=== PATIENT | female | born 1995 | race Caucasian/White ===

== ENCOUNTER 2016-10-01 18:37 | Emergency (ER) | payer OTHER ==
[2016-10-01] MEDS ORDERED: methylPREDNISolone SOD SUCC 125 MG/2 ML VIAL IVP ONE (19:07)
[2016-10-01] MEDS ORDERED: NS 1,000 ML IV ONE (19:07)
--- NOTE | 2016-10-01 19:42 | EDPHY ---
H & P Stated Complaint: rash starting last night HPI/ROS: CHIEF COMPLAINT: Rash HISTORY OF PRESENT ILLNESS: patient awoke this morning at 3:00 a.m. with diffuse rash. This is a very pruritic rash. It is nonpainful. No fever, headache or neck pain. No neck stiffness. No cough or body aches. No joint pain. She is concerned it is very pruritic, as well as a recent trip late last week out of the country. She notes multiple mosquito bite at that time but no tick bites. She has had no bleeding from any site. No fever prior to this. No sore throat. She took some Benadryl over 12 hours ago with no relief. No new exposures of any kind otherwise. Recently drove back from [place] yesterday.No other associated complaints or modifying factors. REVIEW OF SYSTEMS: Ten systems reviewed and are negative unless otherwise noted in the HPI EXAMINATION General Appearance: Alert, no distress Head: normocephalic, atraumatic Eyes: Pupils equal and round, no conjunctival pallor or injection ENT, Mouth: Mucous membranes moist Neck: Normal inspection, supple, non-tender , no meningismus. Active and passive range of motion all planes without pain. Respiratory: Lungs are clear to auscultation Cardiovascular: Regular rate and rhythm Gastrointestinal: Abdomen is soft and nontender Back: non-tender, no bony abnormalities Neurological: A&O, nonfocal, normal gait Skin: Warm and dry, Extensive plaque-like rash about the entire body and neck. Urticarial in appearance. No petechiae. No purpura. No lesions. Extremities: Nontender, no pedal edema . Range of motion intact in all limbs without pain. No edema of the joints Psychiatric: Mood and affect normal DIFFERENTIAL DIAGNOSES: Including but not limited to contact dermatitis, viral exanthem, acute dermatitis, dermatitis NOS MDM: acute pruritic rash that is diffuse. The patient has been scratching extensively but has no excoriations. She has no headache. There is no neck stiffness or meningismus. She has no petechiae or purpura. Given that she has trouble that will obtain IV access and laboratory studies to rule out any obvious abnormality. We will also administer Solu-Medrol, Benadryl and IV fluid. She is in no acute distress and resting comfortably. 2030 Notified by RN that patient was not feeling well with the Solu-Medrol. She felt kind of jittery and anxious. Her rash actually has significantly improved on my re-evaluation, but she does not like how she feels with medication. We are administering Benadryl and watching her. Her vital signs were well within normal limits and she is in no acute distress. 2154 Negative mono test. Remainder of her labs are well within normal limits. There are some atypical lymphocytes. I discussed the case as noted below patient discharged home in stable condition with significantly improved rash. Trial of steroids beginning tomorrow. She was given information about follow- up with Infectious Disease, and she will consider whether she was seated. She will contact him Monday if she wants to see Them next week. Discharged home stable condition. CONSULTATIONS Infectious Disease Dr. Forrest @ 2109. Discussed the patient's care and the possibility of follow-up in her clinic. She says she is happy to see the patient outpatient next week if needed. She does not necessarily want any further labs at this time. I discussed with her that my inclination is that this is unrelated to the patient's travel, I will give the patient information about the clinic and let her decide if she would like to be seen outpatient. SUPERVISION: This patient was independently evaluated without the aide of supervising physician. - Personal History LMP (Females 10-55): 8-14 Days Ago Current Tetanus/Diphtheria Vaccine: Unsure Current Tetanus Diphtheria and Acellular Pertussis (TDAP): Unsure - Medical/Surgical History Hx Asthma: No Hx Chronic Respiratory Disease: No Hx Diabetes: No Hx Cardiac Disease: No Hx Renal Disease: No Hx Cirrhosis: No Hx Alcoholism: No Hx HIV/AIDS: No Hx Splenectomy or Spleen Trauma: No Other PMH: GERD - Social History Smoking Status: Never smoked Constitutional: Initial Vital Signs Temperature (C) 98.1 F 10/01/16 18:41 Heart Rate 99 10/01/16 18:41 Respiratory Rate 18 10/01/16 18:41 Blood Pressure 123/87 H 10/01/16 18:41 O2 Sat (%) 97 10/01/16 18:41 O2 Delivery Mode Room Air Allergies/Adverse Reactions: No Known Allergies Allergy (Unverified 10/01/16 18:40) Home Medications: Medication Instructions Recorded Control 10/01/16 Famotidine [Pepcid 20 MG (*)] 20 mg PO DAILY #20 tab 10/01/16 Omeprazole 10/01/16 predniSONE 60 mg PO DAILY #15 tab 10/01/16 Medical Decision Making - Data Points Laboratory Results: Laboratory Results 10/01/16 19:40 10/01/16 19:40 10/01/16 19:40 WBC 4.20 10^3/uL (3.80-9.50) RBC 5.15 10^6/uL (4.18-5.33) Hgb 14.4 g/dL (12.6-16.3) Hct 41.5 % (38.0-47.0) MCV 80.6 L fL (81.5-99.8) MCH 28.0 pg (27.9-34.1) MCHC 34.7 g/dL (32.4-36.7) RDW 13.0 % (11.5-15.2) Plt Count 181 10^3/uL (150-400) MPV 10.8 fL (8.7-11.7) Neut % (Auto) Not Reported Lymph % (Auto) Not Reported Mayes % (Auto) Not Reported Eos % (Auto) Not Reported Baso % (Auto) Not Reported Nucleat RBC Rel Count 0.0 % (0.0-0.2) Absolute Neuts (auto) Not Reported Absolute Lymphs (auto) Not Reported Absolute Monos (auto) Not Reported Absolute Eos (auto) Not Reported Absolute Basos (auto) Not Reported Absolute Nucleated RBC 0.00 10^3/uL (0-0.01) Immature Gran % Not Reported Seg Neutrophils % 49 % Band Neutrophils % 4 % Lymphocytes % 37 % Monocytes % 5 % Eosinophils % 5 % Immature Gran # Not Reported Absolute Seg Neuts 2.06 10^/uL (1.70-6.50) Absolute Band Neuts 0.17 10^3/uL (0.00-0.70) Absolute Lymphocytes 1.55 10^3/uL (1.00-3.00) Absolute Monocytes 0.21 L 10^3/uL (0.30-0.80) Absolute Eosinophils 0.21 10^3/uL (0.03-0.40) RBC/WBC/PLT Morphology NORMAL (NORMAL) Atypical Lymphocytes 2+ H Platelet Estimate ADEQUATE (ADEQ) Giant Platelets PRESENT H Smear Review By Pending Sodium 140 mEq/L (134-144) Potassium 3.7 mEq/L (3.5-5.2) Chloride 102 mEq/L (97-110) Carbon Dioxide 25 mEq/l (22-31) Anion Gap 13 mEq/L (8-16) BUN 9 mg/dL (7-23) Creatinine 0.7 mg/dL (0.6-1.0) Estimated GFR > 60 Glucose 77 mg/dL (70-100) Calcium 9.1 mg/dL (8.5-10.4) Total Bilirubin 0.9 mg/dL (0.1-1.4) Conjugated Bilirubin 0.3 mg/dL (0.0-0.5) Unconjugated Bilirubin 0.6 mg/dL (0.0-1.1) AST 22 IU/L (14-46) ALT 28 IU/L (9-52) Alkaline Phosphatase 69 IU/L (38-126) Creatine Kinase 38 IU/L (0-156) Total Protein 6.5 g/dL (6.3-8.2) Albumin 4.2 g/dL (3.5-5.0) Beta HCG, Qual NEGATIVE Monoscreen NEGATIVE (NEGATIVE) Medications Given: Discontinued Medications Diphenhydramine HCl (Benadryl Injection) 25 mg IVP EDNOW ONE Stop: 10/01/16 19:08 Last Admin: 10/01/16 19:44 Dose: 25 mg Diphenhydramine HCl (Benadryl Injection) 25 mg IVP EDNOW ONE Stop: 10/01/16 20:31 Last Admin: 10/01/16 20:31 Dose: 25 mg Sodium Chloride (Ns) 1,000 mls @ 0 mls/hr IV ONCE ONE PRN Reason: Wide Open Stop: 10/01/16 19:08 Last Admin: 10/01/16 19:44 Dose: 1,000 mls Methylprednisolone Sodium Succinate (Solu-Medrol) 125 mg IVP EDNOW ONE Stop: 10/01/16 19:08 Last Admin: 10/01/16 19:44 Dose: 125 mg Departure - Departure Clinical Impression: Urticaria, Pruritic dermatitis Condition: Good Instructions: Acute Rash (ED), Urticaria (ED), Viral Exanthem (ED) Additional Instructions: Follow-up with primary care physician as listed. ED precautions for headache , neck pain or stiffness, fever or changes in rash as discussed. Referrals: Dobija,C Jorden, MD [Medical Doctor] - As per Instructions OUT OF STATE,. [Primary Care Provider] - As per Instructions Cristina Forrest MD [Medical Doctor] - As per Instructions Prescriptions: Famotidine [Pepcid 20 MG (*)] 20 mg PO DAILY #20 tab predniSONE 60 mg PO DAILY #15 tab
[2016-10-01 19:57] LABS: ADD MORPH? NO; ADD SCAN? YES; FRAGMENT RBC FLAG 0 (0-99); HEMATOCRIT 41.5 % (38.0-47.0); HEMOGLOBIN 14.4 g/dL (12.6-16.3); LEFT SHIFT FLG 0 (0-99); LIPEMIA HEMOLYSIS FLAG 90 (0-99); MEAN CELL HEMOGLOBIN CONCENTR. 34.7 g/dL (32.4-36.7); MEAN CELL VOLUME 80.6 fL (81.5-99.8); MEAN PLATELET VOLUME 10.8 fL (8.7-11.7); PLATELET CLUMPS FLAG 0 (0-99); PLATELET COUNT 181 10^3/uL (150-400); RED BLOOD CELL COUNT 5.15 10^6/uL (4.18-5.33)
[2016-10-01 20:03] LABS: ATYPICAL LYMPHOCYTE FLAG 110 (0-99)
[2016-10-01 20:28] LABS: ALANINE AMINOTRANSFERASE 28 IU/L (9-52); ALBUMIN 4.2 g/dL (3.5-5.0); ALKALINE PHOSPHATASE 69 IU/L (38-126); ANION GAP 13 mEq/L (8-16); ASPARTATE AMINOTRANSFERASE 22 IU/L (14-46); BILIRUBIN,TOTAL 0.9 mg/dL (0.1-1.4); BILIRUBIN-CONJUGATED 0.3 mg/dL (0.0-0.5); BILIRUBIN-UNCONJUGATED 0.6 mg/dL (0.0-1.1); CALCIUM 9.1 mg/dL (8.5-10.4); CARBON DIOXIDE 25 mEq/l (22-31); CHLORIDE 102 mEq/L (97-110); CREATININE 0.7 mg/dL (0.6-1.0); GLOMERULAR FILTRATION RATE > 60; GLUCOSE 77 mg/dL (70-100); POTASSIUM 3.7 mEq/L (3.5-5.2); SODIUM 140 mEq/L (134-144); TOTAL PROTEIN 6.5 g/dL (6.3-8.2)
[2016-10-01 20:30] LABS: ADD DIFF? YES
[2016-10-01 20:31] LABS: SCAN POSITIVE
[2016-10-01 20:43] LABS: GIANT PLATELETS PRESENT; PLATELET ESTIMATE ADEQUATE (ADEQ)
[2016-10-01 22:11] VITALS: BP 99/68; PULSE 72; RESP 14; TEMP 98.6; O2SAT 98
== END 2016-10-01 22:01 | disposition home or self-care (01) ==
DX: L50.9 Urticaria, unspecified (principal); L30.8 Other specified dermatitis
CPT/HCPCS: 96374

== ENCOUNTER 2016-10-04 17:52 | Emergency (ER) | payer OTHER ==
[2016-10-04 18:12] VITALS: RESP 18
[2016-10-04] MEDS ORDERED: NS 1,000 ML IV ONE (19:00)
[2016-10-04 19:09] LABS: COLOR YELLOW; LEUKOCYTE ESTERASE,URINE NEGATIVE (NEGATIVE); NITRITE,URINE NEGATIVE (NEGATIVE)
--- NOTE | 2016-10-04 19:09 | EDPHY ---
H & P Time Seen by Provider: 10/04/16 18:39 HPI/ROS: HPI Abdominal pain. 21-year-old female by private vehicle with her friend. This patient reports that she has had on and off abdominal pain described as mostly right lower quadrant abdominal pain for the last month but some mid bilateral upper abdominal pain. This is described as sharp and crampy. She reports that she was home in [place] over the [place] break and was having episodes of this pain but mostly upper abdominal pain. She reports that she had a colonoscopy but it was incomplete exam secondary to inability to past through the colonic flexure. She reports that she felt better for a while comes in today complaining of worsening right lower quadrant pain again described as sharp and crampy. She had a bowel movement earlier today. She describes this is normal. No bloody or melenic stool. Her last meal was at lunch 3:30 p.m.. She denies any prior abdominal surgical history. ROS: Constitutional: No fever, no chills. No weakness. Eyes: No discharge. No changes in vision. ENT: No sore throat. No nasal congestion or rhinorrhea. Respiratory: No cough. No shortness of breath. Cardiac: No chest pain, no palpitations. Gastrointestinal: No abdominal pain, no vomiting, no diarrhea. Genitourinary: No hematuria. No dysuria or increased frequency with urination. Musculoskeletal: No back pain. No neck pain. No myalgias or arthralgias. Skin: No rashes. Neurological: No headache. No focal weakness or altered sensation. Past medical history: As above. Social history: [employer]. Here with her friend. Nonsmoker. Physical Exam: General Appearance: Alert, no distress. This patient is responding to questions appropriately and in full sentences. This patient appears well- hydrated and well-nourished. Eyes: Pupils equal and round no pallor or injection. No lid edema, erythema or injection. Respiratory: There are no retractions, lungs are clear to auscultation with good air movement bilaterally. Cardiovascular: Regular rate and rhythm. No murmur. Gastrointestinal: Abdomen is soft with vague and mild right lower quadrant tenderness on palpation, no masses, bowel sounds normal. No focal tenderness at McBurney's point. No Rehman sign. Neurological: Motor sensory function is grossly intact. Cranial nerves are normal. Gait is normal. Skin: Warm and dry, no rashes. Musculoskeletal: Neck is supple and nontender. Extremities are symmetrical. All joints range without pain or impingement. Psychiatric: No agitation. No depression. Database: EKG: Imaging: CT abdomen and pelvis with IV contrast: Some constipation. Secondary to her body habitus the appendix is not well visualized. However, no inflammatory changes in the right lower quadrant noted. The pancreas is well visualized and is normal. No other significant pathology. Results were discussed with staff radiologist Dr. Obi Caban. Procedures: Emergency department course: IV placed. She was placed on a monitor. She was started on IV normal saline with 1 L to be given over the next hour. I discussed CT imaging with her to evaluate for possible appendicitis. She endorses. She is declining pain medication at this time. 8:50 p.m., patient re-evaluated. She is resting comfortably at this time. She was talking to her friend. I discussed the results of her CT scan with her. Repeat abdominal exam she is soft, nontender nondistended. Her blood work and urinalysis were reviewed. She is emotionally labile. She appears comfortable at 1 minute and then she starts to cry bit and then stops. I explained that I would have her follow up with Gastroenterology for re-evaluation and further management. She was in agreement with this plan. I will also have her return to the [facility] in 2 days for repeat blood work. She endorses this plan. She understands her follow-up. Return to emergency department precautions were thoroughly reviewed with her. All of her questions were answered. She was discharged home in good condition with her friend who is driving. Differential Diagnosis: The differential diagnosis on this patient includes but is not limited to appendicitis, biliary colic, cholecystitis, colitis, IBS. This represents a partial list of diagnoses considered. These considerations are based on history , physical exam, past history, reassessment and diagnostic testing. Smoking Status: Never smoked Constitutional: Initial Vital Signs Temperature (C) 37 C 10/04/16 18:09 Heart Rate 97 10/04/16 18:09 Respiratory Rate 18 10/04/16 18:09 Blood Pressure 137/92 H 10/04/16 18:09 O2 Sat (%) 97 10/04/16 18:09 O2 Delivery Mode Room Air Allergies/Adverse Reactions: No Known Allergies Allergy (Verified 10/04/16 18:07) Home Medications: Medication Instructions Recorded Control 10/01/16 Famotidine [Pepcid 20 MG (*)] 20 mg PO DAILY #20 tab 10/01/16 Omeprazole 10/01/16 predniSONE 60 mg PO DAILY #15 tab 10/01/16 Doxycycline Hyclate 10/04/16 Medical Decision Making - Data Points Laboratory Results: Laboratory Results 10/04/16 18:45 10/04/16 18:45 Medications Given: Discontinued Medications Sodium Chloride (Ns) 1,000 mls @ 0 mls/hr IV ONCE ONE PRN Reason: Wide Open Stop: 10/04/16 19:01 Last Admin: 10/04/16 19:18 Dose: 1,000 mls Departure - Departure Disposition: Home, Routine, Self-Care Clinical Impression: Abdominal pain Condition: Good Instructions: Abdominal Pain (ED) Additional Instructions: Read and follow provided instructions. Follow-up with your primary care physician at the [facility] in 2 days for repeat liver function tests and a lipase which is a measure of your pancreas. Follow up with [facility], Dr. Jamel Chavis, or 1 of his partners for re-evaluation and further management later this week. Call their office tomorrow morning for appointment time. Explained this is for an emergency department follow-up. Avoid fatty and spicy foods. Return to the emergency department for worsening abdominal pain, fever, vomiting and inability to keep fluids down, blood in your stool or other serious concerns. Referrals: Jamel Chavis MD [Medical Doctor] - As per Instructions
[2016-10-04 19:14] LABS: % IMMATURE GRANULYOCYTES 0.3 % (0.0-1.1); ABSOLUTE IMMATURE GRANULOCYTES 0.02 10^3/uL (0.00-0.10); ADD DIFF? NO; ADD MORPH? NO; ADD SCAN? YES; FRAGMENT RBC FLAG 0 (0-99); HEMATOCRIT 43.6 % (38.0-47.0); HEMOGLOBIN 14.9 g/dL (12.6-16.3); LEFT SHIFT FLG 10 (0-99); LIPEMIA HEMOLYSIS FLAG 90 (0-99); MEAN CELL HEMOGLOBIN 28.2 pg (27.9-34.1); MEAN CELL HEMOGLOBIN CONCENTR. 34.2 g/dL (32.4-36.7); MEAN CELL VOLUME 82.4 fL (81.5-99.8); MEAN PLATELET VOLUME 11.2 fL (8.7-11.7); PLATELET CLUMPS FLAG 0 (0-99); PLATELET COUNT 236 10^3/uL (150-400); RED BLOOD CELL COUNT 5.29 10^6/uL (4.18-5.33); RED CELL DISTRIBUTION WIDTH 13.1 % (11.5-15.2)
[2016-10-04 19:15] LABS: ATYPICAL LYMPHOCYTE FLAG 300 (0-99)
[2016-10-04 19:21] LABS: ALANINE AMINOTRANSFERASE 32 IU/L (9-52); ALBUMIN 4.3 g/dL (3.5-5.0); ALKALINE PHOSPHATASE 65 IU/L (38-126); ANION GAP 10 mEq/L (8-16); ASPARTATE AMINOTRANSFERASE 23 IU/L (14-46); BILIRUBIN,TOTAL 0.8 mg/dL (0.1-1.4); BILIRUBIN-CONJUGATED 0.1 mg/dL (0.0-0.5); BILIRUBIN-UNCONJUGATED 0.7 mg/dL (0.0-1.1); CALCIUM 9.4 mg/dL (8.5-10.4); CARBON DIOXIDE 28 mEq/l (22-31); CHLORIDE 100 mEq/L (97-110); CREATININE 0.7 mg/dL (0.6-1.0); GLOMERULAR FILTRATION RATE > 60; GLUCOSE 128 mg/dL (70-100); POTASSIUM 4.4 mEq/L (3.5-5.2); SODIUM 138 mEq/L (134-144); TOTAL PROTEIN 7.1 g/dL (6.3-8.2)
[2016-10-04 19:39] LABS: SCAN POSITIVE
[2016-10-04] MEDS ORDERED: IOPAMIDOL (ISOVUE-300) 50 ML VIAL IV ONE (19:42)
[2016-10-04 19:49] LABS: PLATELET ESTIMATE ADEQUATE (ADEQ)
--- NOTE | 2016-10-04 20:17 | CT ---
CT Scan of the Abdomen and Pelvis (With Contrast) Clinical Indications: Right lower quadrant pain Technique: 80 mL of Isovue 300 were given intravenously by machine power injection. Multidetector he lical CT imaging was performed from the diaphragm to the symphysis pubis. Dose reduction techniques w ere utilized. Findings: CT ABDOMEN: Lung bases are clear. Liver, spleen, pancreas, kidneys enhance normally. Visualized bowel loops are normal. In the right lower quadrant, the appendix is not definitely visualized. However, no evidence of infla mmatory changes or abscess noted. A moderate amount of retained stool is present throughout the colon, especially the right and transve rse colon, compatible with constipation. CT PELVIS: No peritoneal free fluid. No masses. Impression: 1. No CT evidence of acute appendicitis. 2. Moderate constipation. Results called to Dr. Shay at 8:15 PM.
[2016-10-04] MEDS ORDERED: ONDANSETRON 4MG PREPACK#2 BTL TAKEHOME ONE (20:54)
[2016-10-04 21:40] VITALS: BP 118/85; PULSE 60; TEMP 98.2; O2SAT 96
== END 2016-10-04 21:40 | disposition home or self-care (01) ==
DX: R10.31 Right lower quadrant pain (principal)
CPT/HCPCS: Q9967

== ENCOUNTER 2017-01-04 15:02 | Emergency (ER) | payer OTHER ==
[2017-01-04 15:14] VITALS: BP 112/78
[2017-01-04 15:17] VITALS: PULSE 90; RESP 20; TEMP 98.1; O2SAT 98
--- NOTE | 2017-01-04 15:19 | EDPHY ---
H & P Stated Complaint: pain and lump on R labia for 1 week, sent from [facility] for drainage - Personal History LMP (Females 10-55): 8-14 Days Ago Current Tetanus/Diphtheria Vaccine: Yes - Medical/Surgical History Hx Asthma: No Hx Chronic Respiratory Disease: No Hx Diabetes: No Hx Cardiac Disease: No Hx Renal Disease: No Hx Cirrhosis: No Hx Alcoholism: No Hx HIV/AIDS: No Hx Splenectomy or Spleen Trauma: No Other PMH: GERD - Social History Smoking Status: Never smoked Time Seen by Provider: 01/04/17 15:10 HPI/ROS: CHIEF COMPLAINT: "Lump on the right labia" HISTORY OF PRESENT ILLNESS: 21-year-old immunocompetent female complaining of 1 week progressively enlarging right lateral labial lesion, tender, has been on oral Keflex and followed student health referred to the ER for further evaluation, possible incision and drainage. PHYSICAL EXAM (Prior to examination, patient consented to physical exam, hands were washed and my usual and customary physical exam procedures followed) 1) GENERAL: Well-developed, well-nourished, alert and oriented. Appears to be in no acute distress. 2) HEAD: Normocephalic 3) HEENT: sclera anicteric 4) LUNGS: Breathing comfortably. [5) (with nurse Nilsa at bedside): Right lateral to the clitoris the patient has a mild soft tissue swelling and an area of tenderness which is deep in the right labia majora. location is not in the location of the Bartholin gland. (Willem,Jany Mary) Constitutional: Initial Vital Signs Temperature (C) 36.7 C 01/04/17 15:10 Heart Rate 90 01/04/17 15:10 Respiratory Rate 20 01/04/17 15:10 Blood Pressure 112/78 01/04/17 15:10 O2 Sat (%) 98 01/04/17 15:10 O2 Delivery Mode Room Air Allergies/Adverse Reactions: No Known Allergies Allergy (Verified 10/04/16 18:07) Home Medications: Medication Instructions Recorded Control 10/01/16 Famotidine [Pepcid 20 MG (*)] 20 mg PO DAILY #20 tab 10/01/16 Omeprazole 10/01/16 predniSONE 60 mg PO DAILY #15 tab 10/01/16 Doxycycline Hyclate 10/04/16 ED Images - Female Images Genitals Female Closeup: 1 - Lesion Medical Decision Making Procedures: Procedure: Incision and Drainage abscess. The patient's abscess was located on the right labia. Risks, benefits, alternatives discussed with the patient and consent obtained. The area was prepped and draped in sterile fashion. The patient received local anesthesia with 1% lidocaine with epinephrine. The abscess was incised with a #11 blade and purulent drainage was expressed. The patient tolerated the procedure well. The procedure was performed by myself. (Megan Stearns) ED Course/Re-evaluation: Incision and drainage performed by CYRIL Stearns in the ER. Please see her procedure note. (Jany Bangura) Departure - Departure Disposition: Home, Routine, Self-Care Clinical Impression: Abscess of right genital labia Condition: Good Instructions: Abscess (ED) Additional Instructions: Return to the ER if you develop new or worsening symptoms Referrals: Jessica Baron, RN, DROSOPHERE OPERATOR [Primary Care Provider] - 1 day without fail
== END 2017-01-04 16:00 | disposition home or self-care (01) ==
PROC: 0U9MXZZ Drainage of Vulva, External Approach (ICD-10-PCS; principal; 2017-01-04)
DX: N76.4 Abscess of vulva (principal)

== ENCOUNTER 2017-05-19 08:37 | Emergency (ER) | payer OTHER ==
[2017-05-19 08:42] VITALS: RESP 16; O2SAT 99
[2017-05-19] MEDS ORDERED: SULFAMETHOX/TMP 800/160 MG 1 TAB PO ONE (11:31)
--- NOTE | 2017-05-19 11:38 | EDPHY ---
H & P Stated Complaint: Cyst on labia x 2 wks;worse over last 24 hrs Exam Limitations: No limitations - Personal History LMP (Females 10-55): 15-21 Days Ago Current Tetanus Diphtheria and Acellular Pertussis (TDAP): Yes - Medical/Surgical History Hx Asthma: No Hx Chronic Respiratory Disease: No Hx Diabetes: No Hx Cardiac Disease: No Hx Renal Disease: No Hx Cirrhosis: No Hx Alcoholism: No Hx HIV/AIDS: No Hx Splenectomy or Spleen Trauma: No Other PMH: GERD. ?bartholin vs labial cyst in past requiring I&D - Social History Smoking Status: Never smoked Time Seen by Provider: 05/19/17 10:30 HPI/ROS: HPI: A 22-year-old female who presents with Chief Complaint: Right vulvar abscess Location: Right labia Quality: Abscess Duration: 1 week Signs and Symptoms: No fever, no vaginal discharge, no vaginal bleeding, no discharge, no redness, + pain Timing: Gradual onset Severity: Moderate Context: Generally healthy. In a monogamous relationship with her boyfriend of 6 months. No concern for STDs. Normally follows with [facility] but has not seen them in 6 months. Seen here in December of 2016 for similar problems in the same area. No history diabetes. No history MRSA. Modifying Factors: Has not tried warm compresses were called OBGYN Comment: ROS: Constitutional: No fever, no chills, no weight loss Eyes: No blurred vision Respiratory: No shortness of breath, no cough Cardiovascular: No chest pain Gastrointestinal: No nausea, no vomiting no diarrhea Genitourinary: No dysuria Extremities: No myalgias Neurologic: No weakness, no numbness Skin: No rashes Hematologic: No bruising, no bleeding MEDICAL/SURGICAL HISTORY: Generally healthy. Denies surgical history. (Sima Tirado) - Physical Exam Exam: CONSTITUTIONAL: awake and alert, no obvious distress HEENT: Atraumatic and normocephalic, PERRL, EOMI. Tympanic membranes clear. . Oropharynx clear, no exudate and moist pink mucosa. Airway patent. No lymphadenopathy. No meningismus. Cardiovascular: Normal S1/S2, regular rate, regular rhythm, without murmur rub or gallop. PULMONARY/CHEST: Symmetrical and nontender. Clear to auscultation bilaterally Good air movement. No accessory muscle usage. PELVIC: right labia majora on the inside 1 inch annular erythematous/tenderness to palpation abscess with fluctuant area noted; no discharge, no bleeding. The exam was performed with a ground wood supervisor. ABDOMEN: Soft, nondistended, nontender, no rebound, no guarding, no peritoneal signs, no masses or organomegaly. No CVAT. EXTREMITIES: 2/2 pulses, no deformities, no clubbing, no cyanosis or edema. NEUROLOGICAL: no focal neuro deficits. GCS 15. SKIN: Warm and dry, no erythema. no rash. Good capillary refill. (Sima Tirado) Constitutional: Initial Vital Signs Temperature (C) 37.2 C 05/19/17 08:38 Heart Rate 86 05/19/17 08:38 Respiratory Rate 16 05/19/17 08:38 Blood Pressure 113/83 H 05/19/17 08:38 O2 Sat (%) 99 05/19/17 08:38 O2 Delivery Mode Room Air Allergies/Adverse Reactions: No Known Allergies Allergy (Verified 05/19/17 08:38) Home Medications: Medication Instructions Recorded Control Pills 05/19/17 Omeprazole [Prilosec 20 mg] 20 mg PO DAILY 05/19/17 Sulfamethox/Tmp 800/160 mg 1 tab PO BID #14 tab 05/19/17 [Bactrim Ds] Medical Decision Making Procedures: Procedure: Incision and drainage. Verbal consent was obtained from the patient. The right labia was anesthetized in the usual fashion 3 mL of 1% lidocaine with epinephrine. Area was cleaned with Betadine x3. A stab incision was made with a # 11 Scalpel blade. Form mL of purulent drainage was expressed. 1/4 inch iodoform packing was placed. There were no deep structures involved. The Bartholin gland was not involved. The patient tolerated procedure well. The procedure was performed by myself with the help of a ground wood supervisor. (Sima Tirado) ED Course/Re-evaluation: Abscess I and D; wound culture taken; Given Bactrim placed on Rx x7 days Advised to follow up with OBGYN (Sima Tirado) The patient was evaluated and managed by the physician licensed nursing assistant. I have reviewed this chart and I agree with the findings and plan of care as documented , as indicated by my signature. I am the secondary supervising physician. ( Cabeen,Silvia A) Differential Diagnosis: Differential diagnosis includes but is not limited to labial abscess, Bartholin gland abscess, MRSA infection, hidradenitis suppurative, cellulitis. (Sima Tirado) - Data Points Microbiology Results: MICROBIOLOGY 05/19/17 11:30 Groin - Swab Gram Stain - Final Medications Given: Discontinued Medications Trimethoprim/Sulfamethoxazole (Bactrim Ds) 1 ea PO EDNOW ONE PRN Reason: Protocol Stop: 05/19/17 11:32 Last Admin: 05/19/17 11:36 Dose: 1 ea Departure - Departure Disposition: Home, Routine, Self-Care Clinical Impression: Abscess of labia majora Condition: Good Instructions: Abscess (ED), Bartholin Cyst (ED) Additional Instructions: The packing in place times 48 hours. After 48 hours may remove packing in clean area with warm water and mild soap daily. Take all antibiotics as indicated. Referrals: Jessica Baron RN, LEAD INFRASTRUCTURE ARCHITECT [Primary Care Provider] - 2-3 days, if not improved Peyton Angulo MD [Medical Doctor] - As per Instructions (To establish care ) Prescriptions: Sulfamethox/Tmp 800/160 mg [Bactrim Ds] 1 tab PO BID #14 tab
[2017-05-19 11:50] VITALS: BP 105/76; PULSE 79; TEMP 97.3
== END 2017-05-19 11:50 | disposition home or self-care (01) ==
PROC: 0U9MXZZ Drainage of Vulva, External Approach (ICD-10-PCS; principal; 2017-05-19)
DX: N76.4 Abscess of vulva (principal)

== ENCOUNTER 2017-11-28 10:39 | Emergency (ER) | payer OTHER ==
[2017-11-28 10:58] VITALS: TEMP 98.8
--- NOTE | 2017-11-28 12:00 | EDPHY ---
H & P Stated Complaint: LLQ starting Monday, got worse last night, concerned re issues with IUD Time Seen by Provider: 11/28/17 11:59 - Personal History LMP (Females 10-55): Now Current Tetanus/Diphtheria Vaccine: No Current Tetanus Diphtheria and Acellular Pertussis (TDAP): No - Medical/Surgical History Hx Asthma: No Hx Chronic Respiratory Disease: No Hx Diabetes: No Hx Cardiac Disease: No Hx Renal Disease: No Hx Cirrhosis: No Hx Alcoholism: No Hx HIV/AIDS: No Hx Splenectomy or Spleen Trauma: No Other PMH: GERD. ?bartholin vs labial cyst in past requiring I&D - Social History Smoking Status: Never smoked Constitutional: Initial Vital Signs Temperature (C) 37.1 C 11/28/17 10:56 Heart Rate 108 H 11/28/17 10:56 Respiratory Rate 20 11/28/17 10:56 Blood Pressure 130/102 H 11/28/17 10:56 O2 Sat (%) 96 11/28/17 10:56 O2 Delivery Mode Room Air Allergies/Adverse Reactions: No Known Allergies Allergy (Verified 11/28/17 10:55) Home Medications: Medication Instructions Recorded NK [No Known Home Meds] 11/28/17 Medical Decision Making - Diagnostics Imaging: Discussed imaging studies w/ call center assistant Radiologist ED Course/Re-evaluation: CHIEF COMPLAINT: Lower abdominal pain more left lower HISTORY OF PRESENT ILLNESS: 22-year-old female who is sexually active. She had an IUD placed about a month ago. She just started her 1st menstrual cycle since having the IUD placed and she is having this severe severe amount of left lower quadrant pain. She presented to her OBGYN office this morning they did a test which was negative. They did not have time to ultrasound her or work her up further and she is in a tremendous amount of pain so they suggested she come to the emergency department to get her IUD placement checked. She denies any fevers or chills, she denies any nausea vomiting. She denies any vaginal discharge. She denies any urinary symptoms. REVIEW OF SYSTEMS: A 10 point review of systems was performed and is negative with the exception of the elements mentioned in the history of present illness. PHYSICAL EXAM: HR, BP, O2 Sat, RR. Temp noted General Appearance: Alert, well hydrated, appropriate, and non-toxic appearing. Head: Atraumatic without scalp tenderness or obvious injury Eyes: Pupils equal, round, reactive to light and accommodation, EOMI, no trauma , no injection. Ears: Clear bilaterally, no perforation, normal landmarks Nose: Atraumatic, no rhinorrhea, clear. Throat: There is no erythema or exudates, no lesions, normal tonsils, mucus membranes moist. Neck: Supple, 2+ carotid upstroke, nontender, no lymphadenopathy. Respiratory: No retractions, no distress, no wheezes, and no accessory muscle use. Lungs are clear to auscultation bilaterally. Cardiovascular: Regular rate and rhythm, no murmurs, rubs, or gallops. Bilateral carotid, radial, dorsalis pedis, and posterior tibial pulses intact. Good capillary refill all extremities. Gastrointestinal: Abdomen is soft, tenderness just left of the umbilicus and lower, non-distended, no masses, no rebound, no guarding, no peritoneal signs. Musculoskeletal: Normal active ROM of all extremities, atraumatic. Neurological: Alert, appropriate, and interactive. The patient has normal DTRs and non-focal cranial nerves, motor, sensory, and cerebellar exam. Skin: No rashes, good turgor, no nodules on palpation. Past medical history: Noncontributory Past surgical history: Noncontributory Family history: Noncontributory Social history: Single, employed, does not abuse tobacco drugs or alcohol DIAGNOSTICS/PROCEDURES/CRITICAL CARE TIME: Study: Ultrasound of the: Complete pelvis checking IUD placement and ovaries and tubes Indication: Left lower quadrant pain, IUD in place Results: US scan of the body parts was obtained. The results of the study are normal, appropriately placed IUD. The study was read by the radiologist, . I viewed the images myself on the PACS system. Renal US: negative DIFFERENTIAL DIAGNOSIS: The differential diagnosis for the patient's abdominal pain included but was not limited to ovarian cyst, pelvic inflammatory disease, ovarian torsion, urinary tract infection, ectopic , IUD displacement, and appendicitis. MEDICAL DECISION MAKING: This patient is a lot of pain and she is tearful. She does not want any strong pain meds that she needs to drive. I gave her 30 ketorolac. Additionally she had a negative test just before arriving here at her OB GYNs office. I am ordering ultrasound of some laboratory studies. We will check IUD placement and also make sure she does not have an ovarian cyst or torsion her any a other ovarian tubal pathology. Pelvic US shows appropriately placed IUD. Kidney US in progress. Kidney US is normal. On reassessment patient does not have CVA tenderness. She is currently on her menstrual period, which could explain the blood in her UA. I 'm hesitant to subject her to radiation for a CT study given that all of these tests are negative and her exam is benign. Discussed this with the patient and she agrees that she would like to forego the CT for now. She will be discharged with standard care and follow up instructions. Strict return precautions discussed. She is comfortable with this plan. - Data Points Laboratory Results: Laboratory Results 11/28/17 11:30 11/28/17 11:30 11/28/17 11/28/17 11/28/17 12:15 11:30 11:30 WBC 4.81 10^3/uL 10^3/uL (3.80-9.50) RBC 5.22 10^6/uL 10^6/uL (4.18-5.33) Hgb 14.5 g/dL g/dL (12.6-16.3) Hct 43.9 % % (38.0-47.0) MCV 84.1 fL fL (81.5-99.8) MCH 27.8 pg L pg (27.9-34.1) MCHC 33.0 g/dL g/dL (32.4-36.7) RDW 13.2 % % (11.5-15.2) Plt Count 225 10^3/uL 10^3/uL (150-400) MPV 10.5 fL fL (8.7-11.7) Neut % (Auto) 37.3 % L % (39.3-74.2) Lymph % (Auto) 48.4 % H % (15.0-45.0) [place] % (Auto) 7.9 % % (4.5-13.0) Eos % (Auto) 5.6 % % (0.6-7.6) Baso % (Auto) 0.6 % % (0.3-1.7) Nucleat RBC Rel Count 0.0 % % (0.0-0.2) Absolute Neuts (auto) 1.79 10^3/uL 10^3/uL (1.70-6.50) Absolute Lymphs (auto) 2.33 10^3/uL 10^3/uL (1.00-3.00) Absolute Monos (auto) 0.38 10^3/uL 10^3/uL (0.30-0.80) Absolute Eos (auto) 0.27 10^3/uL 10^3/uL (0.03-0.40) Absolute Basos (auto) 0.03 10^3/uL 10^3/uL (0.02-0.10) Absolute Nucleated RBC 0.00 10^3/uL 10^3/uL (0-0.01) Immature Gran % 0.2 % % (0.0-1.1) Immature Gran # 0.01 10^3/uL 10^3/uL (0.00-0.10) Sodium 139 mEq/L mEq/L (135-145) Potassium 4.0 mEq/L mEq/L (3.5-5.2) Chloride 104 mEq/L mEq/L (97-110) Carbon Dioxide 26 mEq/l mEq/l (22-31) Anion Gap 9 mEq/L mEq/L (8-16) BUN 7 mg/dL mg/dL (7-23) Creatinine 0.7 mg/dL mg/dL (0.6-1.0) Estimated GFR > 60 Glucose 85 mg/dL mg/dL (70-100) Calcium 9.6 mg/dL mg/dL (8.5-10.4) Urine Color YELLOW Urine Appearance MODERATELY TURBID Urine pH 7.0 (5.0-7.5) Ur Specific [place] 1.015 (1.002-1.030) Urine Protein NEGATIVE (NEGATIVE) Urine Ketones NEGATIVE (NEGATIVE) Urine Blood 3+ H (NEGATIVE) Urine Nitrate NEGATIVE (NEGATIVE) Urine Bilirubin NEGATIVE (NEGATIVE) Urine Urobilinogen NEGATIVE EU EU (0.2-1.0) Ur Leukocyte Esterase NEGATIVE (NEGATIVE) Urine RBC 50-182 /hpf H /hpf (0-3) Urine WBC NONE SEEN /hpf /hpf (0-3) Ur Epithelial Cells NONE SEEN /lpf /lpf (NONE-1+) Urine Glucose NEGATIVE (NEGATIVE) Medications Given: Discontinued Medications Ketorolac Tromethamine (Toradol) 30 mg IVP EDNOW ONE Stop: 11/28/17 12:06 Last Admin: 11/28/17 12:09 Dose: 30 mg Ondansetron HCl (Zofran) 4 mg IVP EDNOW ONE Stop: 11/28/17 12:06 Last Admin: 11/28/17 12:09 Dose: 4 mg Departure - Departure Disposition: Home, Routine, Self-Care Clinical Impression: Dysmenorrhea Condition: Good Instructions: Dysmenorrhea (ED) Additional Instructions: 1. Use 800mg ibuprofen every 6-8 hours as needed for pain over the next few days. 2. Use [place] as prescribed when needed for severe pain. This medication can make you drowsy, do not drive while using it. 3. You can also apply a heating pad to sore areas if helpful for pain. 4. Follow up with your primary care provider and/or OBGYN as needed for unimproved symptoms over the next few days. 5. Return to the ED for any worsening of condition. Referrals: TERRY MARTIN [Other] - As per Instructions
[2017-11-28] MEDS ORDERED: ONDANSETRON 4 MG/2 ML VIAL IVP ONE (12:05)
[2017-11-28] MEDS ORDERED: KETOROLAC 30 MG/1 ML SDV IVP ONE (12:05)
[2017-11-28 12:10] LABS: PLATELET COUNT 225 10^3/uL (150-400)
[2017-11-28 13:15] VITALS: BP 90/63; PULSE 78; RESP 16; O2SAT 100
== END 2017-11-28 14:00 | disposition home or self-care (01) ==
DX: N94.6 Dysmenorrhea, unspecified (principal)
CPT/HCPCS: 96374; J1885; J2405